=== PATIENT | female | born 1990 | race Caucasian/White ===

== ENCOUNTER 2024-01-04 14:45 | Emergency (ER) | payer BC ==
[~2024-01-04] VITALS: Ht 172.7 cm; Wt 97.5 kg
[~2024-01-04 14:45] MED LIST: ALBUTEROL0.09 MG/A2 IH; BIRTH CONTROL1 EAC1 PO; CLARITIN10 MG PO; CLINDAMYCIN HC300 MG PO; L-LYSINE500 MG PO; LOMOTIL 0.025 M1 TA1 PO; MACROBID100 M1 PO; MEDROL DOSEPAK4 MG PO; NAPROSYN500 MG PO; OMEPRAZOLE40 MG PO; OMNICEF300 MG PO; PROTONIX TR40 MG PO; VICO75300 PO; ZITHROMAX Z PA250 MG PO; ZITHROMAX Z-PA250 MG PO; ZOFRAN ODT4 MG SL; ZOFRAN4 MG PO
[2024-01-04 14:53] VITALS: BP 130/84
[2024-01-04] MEDS ORDERED: ABILIFY5 MG PO (14:55)
[2024-01-04] MEDS ORDERED: ZOLOFT100 MG PO (14:55)
[2024-01-04] MEDS ORDERED: Tetracaine Hydrochloride 0.5% 4 ML BOT OPH ONE (15:15)
[2024-01-04] MEDS ORDERED: FLUORESCEIN SODIUM 1 MG STRIP OPH ONE (15:15)
[2024-01-04] MEDS ORDERED: ERYTHROMYCIN OPH1 GM OS (15:33)
[2024-01-04] MEDS ORDERED: ERYTHROMYCIN 1 GM TUBE OPH ONE (15:35)
== END 2024-01-04 15:45 | disposition home or self-care (01) ==
LOC: ED 14:45
DX: S05.02XA Injury of conjunctiva and corneal abrasion without foreign body, left eye, initial encounter (principal); K21.9 Gastro-esophageal reflux disease without esophagitis; J45.909 Unspecified asthma, uncomplicated; G43.909 Migraine, unspecified, not intractable, without status migrainosus; Z90.89 Acquired absence of other organs; Z98.890 Other specified postprocedural states; W45.0XXA Nail entering through skin, initial encounter; Y93.89 Activity, other specified; Y92.89 Other specified places as the place of occurrence of the external cause; Y99.8 Other external cause status